=== PATIENT | female | born 1950 | race Hispanic/Latino ===

== ENCOUNTER 2019-08-09 11:19 | Emergency (ER) | payer OTHER ==
[~2019-08-09] VITALS: Ht 162.6 cm; Wt 67.1 kg
[~2019-08-09 11:19] MED LIST: COLACE100 MG PO; LEVAQUIN500 MG PO; LISINOPRIL PO; METFORMIN HCL500 MG PO; SENOKOT8.6 MG PO; ULTRAM 50MG50 MG PO; ZOCOR20 MG PO
== END 2019-08-09 11:56 | disposition home or self-care (01) ==
LOC: ER 11:19
DX: G51.0 Bell's palsy (principal); I10 Essential (primary) hypertension; E11.9 Type 2 diabetes mellitus without complications; E78.5 Hyperlipidemia, unspecified
CPT/HCPCS: 99282